=== PATIENT | male | born 1995 | race African-American/Black ===

== ENCOUNTER 2016-11-13 08:52 | Emergency (ER) | payer MEDICAID ==
[~2016-11-13] VITALS: Ht 167.6 cm; Wt 57.0 kg
[2016-11-13] MEDS ORDERED: MORPHINE SULFATE 4 MG/ML CPJ (NOT FOR IM USE) IV STA (09:10)
[2016-11-13] MEDS ORDERED: SODIUM CHLORIDE 0.9% 1,000 ML IV ONE ×2 (09:10→09:58)
[2016-11-13] MEDS ORDERED: ONDANSETRON HCL 4MG/2ML VIAL IV STA (09:10)
[2016-11-13] MEDS ORDERED: FAMOTIDINE 20MG/2ML VIAL IV STA (09:10)
[2016-11-13 09:25] LABS: BASOPHILS % 0.5 % (0.0-2.0); EOSINOPHILS % 0.3 % (0.0-5.0); HEMATOCRIT. 49.1 % (42.0-52.0); HEMOGLOBIN. 16.7 g/dL (14.0-18.0); MEAN CORPUSCULAR HEMOGLOBIN 31.2 pg (28.0-32.0); MEAN CORPUSCULAR VOLUME 91.8 fL (80.0-94.0); MEAN PLATELET VOLUME 7.6 fl (7.4-10.4); NEUTROPHILS % 41.2 % (40.0-76.0); PLATELET 366 x1000/uL (130-400); RED BLOOD CELL COUNT 5.35 mill/uL (4.7-6.1); RED CELL DISTRIBUTION WIDTH 13.6 % (11.6-14.6)
[2016-11-13 09:32] LABS: INR 1.1; PARTIAL THROMBOPLASTIN TIME 33.1 sec (24.0-34.0); PROTHROMBIN TIME 11.3 sec
[2016-11-13 09:46] LABS: CARBON DIOXIDE 30 mEq/L (21-32); CHLORIDE 94 mEq/L (98-107); ETHANOL BLOOD < 10 mg/dL
[2016-11-13 09:53] LABS: CREATINE KINASE 1866 IU/L (39-308)
[2016-11-13 09:59] LABS: CLARITY URINE CLEAR (CLEAR); COLOR URINE ORANGE (YELLOW); GLUCOSE URINE NEGATIVE (NEGATIVE); KETONES URINE 1+ (NEGATIVE); LEUKOCYTE ESTERASE URINE TRACE (NEGATIVE); NITRITE URINE NEGATIVE (NEGATIVE); OCCULT BLOOD URINE 1+ (NEGATIVE); PROTEIN URINE 2+ (NEGATIVE)
[2016-11-13 10:40] LABS: *AMPHETAMINES SCREEN URINE NEGATIVE (NEGATIVE); *BARBITURATES SCREEN URINE NEGATIVE (NEGATIVE); *BENZODIAZEPINES SCREEN URINE PRESUMTIVE POSITIVE (NEGATIVE); *COCAINE SCREEN URINE NEGATIVE (NEGATIVE); CANNABINOID URINE SCREEN NEGATIVE (NEGATIVE); METHADONE URINE SCREEN NEGATIVE (NEGATIVE); OPIATES URINE SCREEN NEGATIVE (NEGATIVE); PHENCYCLIDINE URINE SCREEN NEGATIVE (NEGATIVE)
[2016-11-13] MEDS ORDERED: CEFTRIAXONE 1 G PREMIX 50 ML IV ONE (11:00)
[2016-11-13] MEDS ORDERED: LORAZEPAM 2MG/ML CPJ IV SCH (14:30)
[2016-11-13 16:48] VITALS: BP 108/62
== END 2016-11-13 17:00 | disposition short-term general hospital (02) ==
LOC: ER 09:38 → EDBEDREQ 10:41 → CANRESERV 11:04 → ENRESERV 11:04 → CANBEDREQ 12:27 → ER 17:00
DX: E86.0 Dehydration (principal); N39.0 Urinary tract infection, site not specified; M62.82 Rhabdomyolysis; F41.9 Anxiety disorder, unspecified; K59.00 Constipation, unspecified; R11.2 Nausea with vomiting, unspecified; F17.200 Nicotine dependence, unspecified, uncomplicated
CPT/HCPCS: 36415; 74022; 80053; 80305; 81001; 82550; 83690; 83735; 85025; 85610; 85730; 96361; 96365; 96375; 99285; G0482; J0696; J2270; J2405; J3490; J7030; Z7610

== ENCOUNTER 2016-12-04 20:55 | Emergency (ER) | payer MEDICAID, OTHER ==
[~2016-12-04] VITALS: Ht 172.7 cm; Wt 66.0 kg
[2016-12-04] MEDS ORDERED: MORPHINE SULFATE 10 MG/ML CPJ IM ONE (22:15)
[2016-12-04] MEDS ORDERED: PROPOFOL 200MG/20ML VIAL IV ONE (23:00)
[2016-12-04] MEDS ORDERED: KETAMINE HCL 50 MG/ML 10ML IV ONE (23:00)
[2016-12-04] MEDS ORDERED: SODIUM CHLORIDE 0.9% 1,000 ML IV ONE (23:00)
[2016-12-05 01:17] VITALS: BP 123/77
== END 2016-12-05 01:28 | disposition home or self-care (01) ==
LOC: ER 21:36
DX: S42.291A Other displaced fracture of upper end of right humerus, initial encounter for closed fracture (principal); F41.9 Anxiety disorder, unspecified; V00.131A Fall from skateboard, initial encounter; Y93.51 Activity, roller skating (inline) and skateboarding; Y99.8 Other external cause status; Y92.89 Other specified places as the place of occurrence of the external cause
CPT/HCPCS: 24500; 73030; 96360; 99152; 99285; J2270; J3490; J7030; Z7610; A4565; J2704

== ENCOUNTER 2016-12-13 19:12 | Emergency (ER) | payer OTHER ==
[~2016-12-13] VITALS: Ht 167.6 cm; Wt 59.0 kg
[2016-12-14] MEDS ORDERED: HYDROCODONE/ACETAMINOPHEN 5/325MG TABLET PO ONE (02:45)
[2016-12-14 03:11] VITALS: BP 132/88
== END 2016-12-14 03:13 | disposition home or self-care (01) ==
LOC: ER 12-14 01:11
DX: M25.511 Pain in right shoulder (principal); F41.9 Anxiety disorder, unspecified; F17.210 Nicotine dependence, cigarettes, uncomplicated; F10.21 Alcohol dependence, in remission
CPT/HCPCS: 99283

== ENCOUNTER 2017-07-03 11:30 | Emergency (ER) | payer MEDICAID, OTHER ==
[~2017-07-03] VITALS: Ht 175.3 cm; Wt 72.0 kg
[2017-07-03] MEDS ORDERED: MAGNESIUM/ALUMINUM HYDROXIDE/SIMETHICONE 30ML UDC PO STA (15:40)
[2017-07-03] MEDS ORDERED: VISCOUS LIDOCAINE 2% 15 ML UDC PO STA (15:40)
[2017-07-03] MEDS ORDERED: SODIUM CHLORIDE 0.9% 1,000 ML IV ONE (15:40)
[2017-07-03] MEDS ORDERED: ONDANSETRON HCL 4MG/2ML VIAL IV STA (15:40)
[2017-07-03] MEDS ORDERED: FAMOTIDINE 20MG/2ML VIAL IV ONE (15:45)
[2017-07-03 16:12] LABS: INR 1.1; PROTHROMBIN TIME 11.4 sec (9.4-11.6)
[2017-07-03 16:13] LABS: BASOPHILS % 0.2 % (0.0-2.0); EOSINOPHILS % 0.1 % (0.0-5.0); HEMATOCRIT. 48.1 % (42.0-52.0); HEMOGLOBIN. 16.6 g/dL (14.0-18.0); LYMPHOCYTES % 16.6 % (20.0-50.0); MEAN CORPUSCULAR HEMOGLOBIN 31.5 pg (28.0-32.0); MEAN CORPUSCULAR VOLUME 91.2 fL (80.0-94.0); MEAN PLATELET VOLUME 7.6 fl (7.4-10.4); MONOCYTES % 10.2 % (2.0-8.0); NEUTROPHILS % 72.9 % (40.0-76.0); PLATELET 285 x1000/uL (130-400); RED BLOOD CELL COUNT 5.27 mill/uL (4.7-6.1); RED CELL DISTRIBUTION WIDTH 14.6 % (11.6-14.6)
[2017-07-03 16:16] LABS: CHLORIDE 95 mEq/L (98-107); ETHANOL BLOOD < 10 mg/dL
[2017-07-03] MEDS ORDERED: KETOROLAC 30MG/ML VIAL IV ONE (18:00)
[2017-07-03 18:24] LABS: CLARITY URINE TURBID (CLEAR); COLOR URINE DARK YELLOW (YELLOW); KETONES URINE 2+ (NEGATIVE); LEUKOCYTE ESTERASE URINE NEGATIVE (NEGATIVE); NITRITE URINE NEGATIVE (NEGATIVE); OCCULT BLOOD URINE 2+ (NEGATIVE); PROTEIN URINE 3+ (NEGATIVE); SPECIFIC GRAVITY URINE 1.032 (1.005-1.030)
[2017-07-03 18:57] LABS: *AMPHETAMINES SCREEN URINE NEGATIVE (NEGATIVE); *BARBITURATES SCREEN URINE NEGATIVE (NEGATIVE); *BENZODIAZEPINES SCREEN URINE PRESUMTIVE POSITIVE (NEGATIVE); *COCAINE SCREEN URINE NEGATIVE (NEGATIVE); METHADONE URINE SCREEN NEGATIVE (NEGATIVE); OPIATES URINE SCREEN NEGATIVE (NEGATIVE); PHENCYCLIDINE URINE SCREEN NEGATIVE (NEGATIVE)
[2017-07-03 18:59] LABS: CANNABINOID URINE SCREEN NEGATIVE (NEGATIVE)
[2017-07-03 21:29] VITALS: BP 121/77
== END 2017-07-03 21:32 | disposition home or self-care (01) ==
LOC: ER 11:30
DX: R11.2 Nausea with vomiting, unspecified (principal); R10.13 Epigastric pain; F41.9 Anxiety disorder, unspecified
CPT/HCPCS: 36415; 76705; 80053; 80305; 81003; 83690; 85025; 85610; 96361; 96374; 96375; 99285; G0482; J1885; J2405; J3490; J7030; Z7610